=== PATIENT | female | born 1950 | race Asian ===

== ENCOUNTER 2017-08-11 05:34 | Day surgery (SDC) | payer MEDICARE ==
[~2017-08-11] VITALS: Ht 165.1 cm; Wt 72.7 kg
[~2017-08-11 05:34] MED LIST: GLUCOPHAGE1000 MG PO; GLYBURIDE5 M1; LIPOFEN50 MG PO; LOTENSIN5 MG PO; ZOCOR40 MG PO
[2017-08-11 07:02] LABS: HEMATOCRIT 37.3 % (36.0-48.0); HEMOGLOBIN 12.7 g/dL (12-16); MCH 31.2 pg (26.0-34.0); MCV 91.6 fL (80.0-100.0); MEAN PLATELET VOLUME 10.2 fL (7.4-10.4); RBC 4.07 10x6/uL (4.00-5.40); RDW 12.2 % (11.5-14.5); WBC 4.6 10x3/uL (4.8-10.8)
[2017-08-11 07:20] LABS: CALC OSMOLALITY 282 mosm/kg (275-300); CALCIUM 8.7 mg/dL (8.5-10.1); CARBON DIOXIDE 26.5 mmol/L (21.0-32.0); CHLORIDE - SERUM 105 mmol/L (98-107); CREATININE - SERUM 0.7 mg/dL (0.6-1.3); GLUCOSE 173 mg/dL (74-106); POTASSIUM - SERUM 4.3 mmol/L (3.5-5.1); SODIUM 140 mmol/L (136-145); UREA NITROGEN 12 mg/dL (7-18); eGFR NON AFRICAN AMERICAN 89 mL/min (90-120)
[2017-08-11 07:21] VITALS: Ht 165.1 cm; Wt 72.7 kg
--- NOTE | 2017-08-16 11:24 | OP ---
PATIENT NAME: DAVIS CHISHOLM MEDICAL RECORD: [id number] :54 LOCATION:D.OPS ADMISSION DATE: SURGEON: LLOYD MCKINNEY MD DATE OF OPERATION: 08/11/2017 PREOPERATIVE DIAGNOSIS: History of adenomatous colon polyps. POSTOPERATIVE DIAGNOSES: History of adenomatous colon polyps with 3 new colon polyps also seen, ranging from 8 mm to 1.2 cm. PROCEDURES: 1. Total colonoscopy to cecum. 2. Hot biopsy forceps polypectomy times 3. SURGEON: Lloyd Mckinney MD MEDIA PRODUCTION SUPPORT MANAGER: None. BLOOD LOSS: Minimal. ANESTHESIA: IV sedation. COMPLICATIONS: None. The reason for the anesthesia staff being present during the procedure includes anxiety regarding the procedure. ENDOSCOPIC COURSE: The patient was conveyed to the endoscopy suite electively on 08/11/2017. IV sedation was induced by the anesthesia staff. The patient was placed in the Tariq position. A digital rectal examination was performed. A colonoscope was inserted through the anus. It was easily advanced to the cecum. The prep was marginal. I slowly withdrew the endoscope. A combination of direct imaging as well as narrow band imaging were utilized. I dragged the folds. I irrigated and aspirated extensively. The pullback was greater than 15-minute pullback. Three polyps were removed utilizing the hot biopsy forceps polypectomy technique. A retroflexed view was obtained in the rectum. I then unretroflexed the scope and removed it under direct vision. I will see the patient in my office in 2-3 weeks. I will plan for her next surveillance colonoscopy to take place in 3 years. TRANSINT:[id number] Voice Confirmation ID: [id number] DOCUMENT ID: [id number] LLOYD MCKINNEY MD at 1124 CC: FEDERICO SHEFFIELD MD [id number] DICTATION DATE: 08/11/17 1012 MANAGER MASSAGE DEPARTMENT: 08/11/17 1034 [facility] 08/11/17 [id number] [place] [address]
--- NOTE | 2017-08-16 11:24 | HP ---
PATIENT: DAVIS CHISHOLM MEDICAL RECORD: [id number] ACCOUNT: [id number] LOCATION:DANNA : 54 ADMISSION DATE: 08/11/17 HISTORY AND PHYSICAL EXAMINATION CHIEF COMPLAINT: History of colon polyps. HISTORY OF PRESENT ILLNESS: The patient is here for surveillance colonoscopy. Last year in July before colonoscopy, I identified tubular adenoma, which was at the hepatic flexure. The risks, possible complications, and alternatives to procedure were explained to the patient. She elects to proceed. ALLERGIES: No known drug allergies. HOME MEDICATIONS: METFORMIN, GLYBURIDE, FENOFIBRATE, BENAZEPRIL, ZOCOR. SOCIAL HISTORY: Nonsmoker. PAST MEDICAL AND SURGICAL HISTORY: Non-insulin dependent diabetes mellitus, hypertension, history of colon polyps, hyperlipidemia. REVIEW OF SYSTEMS: Negative for CVA or seizures. Negative for thyroid disease or hepatitis. PHYSICAL EXAMINATION: GENERAL: The patient does not appear acutely ill. She does not appear chronically ill. VITAL SIGNS: Reviewed. HEAD: External ears appear normal. EYES: Extraocular movements are intact. NECK: Trachea is midline. CHEST: No intercostal retractions. PULMONARY: Nonlabored. ABDOMEN: Nontender. IMPRESSION: History of colon polyps here for surveillance colonoscopy. PLAN: Will be surveillance colonoscopy. TRANSINT:[id number] Voice Confirmation ID: [id number] DOCUMENT ID: [id number] YAO MCKINNEY MD at 1124 CC: FEDERICO SHEFFIELD MD [id number] DICTATION DATE: 08/11/17 0949 MOLECULAR BIOLOGY DIRECTOR: 08/11/17 1005 [facility] 08/11/17 [id number] [place] [address]
== END 2017-08-11 11:10 | disposition home or self-care (01) ==
LOC: D.OPS 05:34
PROVIDERS: Anesthesiology
DX: Z86.010 Personal history of colon polyps (principal); K63.5 Polyp of colon; I10 Essential (primary) hypertension; E11.9 Type 2 diabetes mellitus without complications; Z01.812 Encounter for preprocedural laboratory examination

== ENCOUNTER 2017-08-12 08:58 | Emergency (ER) | payer MEDICARE ==
[2017-08-11 07:21] VITALS: BMI 26.6
[2017-08-12 09:40] LABS: BASOPHILS 0.2 % (0-2); EOSINOPHILS 1.3 % (0-7); HEMATOCRIT 37.2 % (36.0-48.0); HEMOGLOBIN 12.8 g/dL (12-16); IMMATURE GRANULOCYTES 0.2 % (0-5); LYMPHOCYTES 22.6 % (15-50); MCH 31.2 pg (26.0-34.0); MCHC 34.4 g/dL (31.0-37.0); MCV 90.7 fL (80.0-100.0); MEAN PLATELET VOLUME 10.2 fL (7.4-10.4); MONOCYTES 6.7 % (2-11); PLATELET COUNT 243 10x3/uL (130-400); RDW 12.1 % (11.5-14.5)
[2017-08-12 09:43] LABS: WBC 9.5 10x3/uL (4.8-10.8)
[2017-08-12 11:12] LABS: ALBUMIN 3.4 g/dL (3.4-5.0); ANION GAP 15.1 mmol/L (8-16); BILIRUBIN - TOTAL 0.4 mg/dL (0.2-1.3); CALCIUM 8.6 mg/dL (8.5-10.1); CARBON DIOXIDE 23.6 mmol/L (21.0-32.0); POTASSIUM - SERUM 3.7 mmol/L (3.5-5.1); PROTEIN - SERUM 6.9 g/dL (6.4-8.2)
[2017-08-12 11:15] LABS: CREATININE - SERUM 0.9 mg/dL (0.6-1.3)
[2017-08-12 11:37] LABS: APPEARANCE HAZY (CLEAR); BILIRUBIN NEGATIVE (NEGATIVE); COLOR YELLOW (YELLOW); GLUCOSE 1000 mg/dL (NEGATIVE); KETONE NEGATIVE (NEGATIVE); NITRITE NEGATIVE (NEGATIVE); PROTEIN NEGATIVE (NEGATIVE); UROBILINOGEN NORMAL (NORMAL)
[2017-08-12 11:41] LABS: WHITE CELLS - URINE 0-5 /hpf (0-5)
[2017-08-12 11:42] LABS: BACTERIA FEW /hpf (NONE SEEN); EPITHELIAL CELLS 0-5 /hpf (0-5)
== END 2017-08-12 14:20 | disposition home or self-care (01) ==
LOC: D.ER 08:58
PROVIDERS: Emergency Medicine; Nurse Practitioner Family
DX: N39.0 Urinary tract infection, site not specified (principal); K52.9 Noninfective gastroenteritis and colitis, unspecified; E11.9 Type 2 diabetes mellitus without complications; I10 Essential (primary) hypertension

== ENCOUNTER 2017-08-15 12:46 | Observation (INO) | payer MEDICARE ==
[~2017-08-15] VITALS: Ht 165.1 cm; Wt 72.7 kg
[2017-08-15] MEDS ORDERED: TRADJENTA5 MG PO (16:12)
[2017-08-15] MEDS ORDERED: TYLENOL W/CODEI1 TAB PO (16:13)
[2017-08-15] MEDS ORDERED: ZOFRAN4 MG PO (16:13)
[2017-08-15] MEDS ORDERED: NORVASC5 MG PO (16:14)
[2017-08-15] MEDS ORDERED: ACTOS30 MG PO (16:15)
[2017-08-15] MEDS ORDERED: CIPRO500 MG PO (16:15)
[2017-08-15 16:35] VITALS: BP 167/74
[2017-08-15 16:40] VITALS: BP 167/74; BMI 26.6
--- NOTE | 2017-08-15 19:50 | NUR ---
REPORT RECEIVED, ASSUMED CARE, DENIES NEEDS, CALL LIGHT IN REACH, BE DLOWEST POSIITON, SIDE RAILS UPX2, WILL CONTINUE TO MONITOR
[2017-08-16] VITALS: BP 141/68
--- NOTE | 2017-08-16 00:16 | NUR ---
EYES CLOSED RESPIRATIONS WITH EASE AND UNLABORED.
--- NOTE | 2017-08-16 02:25 | NUR ---
RESTING, DENIES NEEDS, NO DISTRESS NOTED, WILL CONTINUE TO MONITOR
[2017-08-16 04:00] VITALS: BP 147/67
--- NOTE | 2017-08-16 08:30 | NUR ---
RESTING QUIETLY DENIES ANY NEEDS OR DISCOMFORT AT THIS TIME NAD NOTED
[2017-08-16 08:38] LABS: BASOPHILS 0.5 % (0-2); EOSINOPHILS 2.3 % (0-7); HEMATOCRIT 34.5 % (36.0-48.0); IMMATURE GRANULOCYTES 0.2 % (0-5); LYMPHOCYTES 18.5 % (15-50); MCH 31.3 pg (26.0-34.0); MCHC 34.8 g/dL (31.0-37.0); MCV 90.1 fL (80.0-100.0); MEAN PLATELET VOLUME 9.9 fL (7.4-10.4); MONOCYTES 11.5 % (2-11); PLATELET COUNT 233 10x3/uL (130-400); RBC 3.83 10x6/uL (4.00-5.40); RDW 11.7 % (11.5-14.5); WBC 6.2 10x3/uL (4.8-10.8)
[2017-08-16 09:03] LABS: ALBUMIN 2.7 g/dL (3.4-5.0); ANION GAP 11.1 mmol/L (8-16); BILIRUBIN - TOTAL 0.65 mg/dL (0.2-1.3); CALCIUM 8.6 mg/dL (8.5-10.1); CARBON DIOXIDE 28.7 mmol/L (21.0-32.0); POTASSIUM - SERUM 3.8 mmol/L (3.5-5.1); PROTEIN - SERUM 6.4 g/dL (6.4-8.2)
[2017-08-16 09:16] VITALS: BP 151/64
[2017-08-16 10:10] VITALS: Ht 165.1 cm; Wt 72.7 kg
--- NOTE | 2017-08-16 10:14 | NUR ---
PT PRE'OP'D AND SENT TO SURGERY.
--- NOTE | 2017-08-16 11:24 | HP ---
PATIENT: DAVIS CHISHOLM MEDICAL RECORD: [id number] ACCOUNT: [id number] LOCATION:D.MS Noriega5 : 54 ADMISSION DATE: 08/15/17 HISTORY AND PHYSICAL EXAMINATION ADDENDUM CHIEF COMPLAINT: Pain. HISTORY OF PRESENT ILLNESS: The patient recently underwent a colonoscopy by me. She thought she was having pain from the colonoscopy. She had been to the Emergency Room. I have ordered a CT scan on her today. She has got 2.2 cm obstructing stone at the base of the renal pelvis occluding the ureter with hydronephrosis. Dr. Avina is currently out of town. He is going to be returning tomorrow. I have admitted the patient to my service for IV narcotic analgesia. I made the patient n.p.o. in case Dr. Avina can perform a stone manipulation or lithotripsy tomorrow. This is a history and physical note addendum. For the typed portion of the history and physical, please see the chart. This would include the past medical and surgical history, current medications, allergies, social history, as well as family history. REVIEW OF SYSTEMS: Positive for flank pain. Positive for abdominal pain. No nausea, no vomiting, no fever, no chills. Review of systems is negative other than as is described above. PHYSICAL EXAMINATION: GENERAL: The patient does appear acutely ill. Does not appear chronically ill. VITAL SIGNS: Reviewed. The entire physical examination was performed in the presence of a female nurse. EARS: External ears appear normal. EYES: Extraocular movements are intact. NECK: Trachea is midline. CHEST: No intercostal retractions. PULMONARY: Nonlabored, no stridor. ABDOMEN: Left flank tenderness, left lower quadrant tenderness. BACK: Left costovertebral angle tenderness is present. PSYCHIATRIC: Anxious affect. NEUROLOGIC: Nonfocal, no lethargy. IMPRESSION: Symptomatic left ureteral stone 1.2 cm. PLAN: As described above. Consult Dr. Avina in the morning. TRANSINT:[id number] Voice Confirmation ID: [id number] DOCUMENT ID: [id number] HISTORY AND PHYSICAL [id number] DAVIS CHISHOLM YAO MCKINNEY MD at 1124 CC: [id number] DICTATION DATE: 08/15/171999 YOUNG ADULT LIBRARIAN: 08/15/17 2253 ADM IN [facility] [address] [place] [address]
[2017-08-16 11:33] VITALS: BP 143/74
[2017-08-16] MEDS ORDERED: FLOMAX0.4 MG PO (11:37)
--- NOTE | 2017-08-16 11:37 | NUR ---
PT REC'D BACK TO ROOM VIA BED. AAOX4. NO COMPLAINTS OF PAIN. SOME COMPLAINTS OF DIZZINESS. RECONNECTED TO IVF. VSS. EXPLAINED TO PT THAT WE WOULD MONITOR HER VS AND PAIN LEVEL AND THEN SHE WOULD BE SENT HOME. ICE CHIPS PROVIDED. FAMILY AT BEDSIDE. BED LOW, CALL LIGHT IN REACH, DENIES NEEDS. CPOC.
[2017-08-16] MEDS ORDERED: HYDROCODON-ACE1 EAC7 (11:38)
--- NOTE | 2017-08-16 13:04 | NUR ---
PT TOLERATING A REGULAR DIET WELL AND HAS URINATED. DISCONNECTED FROM IVF TO GET DRESSED. TOLD PT TO PRESS CALL LIGHT WHEN SHE IS READY AND WE WILL DISCUSS HER DC INSTRUCTIONS.
--- NOTE | 2017-08-16 13:25 | NUR ---
DC INSTRUCTIONS DISCUSSED AT THIS TIME. QUESTIONS ANSWERED. PIV DC'D WITH CATHETER INTACT. PRESSURE AND DRESSING APPLIED. PAPER PRESCRIPTIONS GIVEN. ESCORTED OUT VIA WC BY VOLUNTEER.
--- NOTE | 2017-08-17 13:12 | OP ---
PATIENT NAME: DAVIS CHISHOLM MEDICAL RECORD: [id number] :54 LOCATION:D.MS [id number] ADMISSION DATE:08/15/17 SURGEON: LLOYD RUANO MD DATE OF OPERATION: 08/16/2017 SURGEON: Lloyd Ruano MD ANESTHESIA: MAC by Jamie Prater CRNA PREOPERATIVE DIAGNOSIS: Left ureteropelvic junction 1.2-cm stone. POSTOPERATIVE DIAGNOSIS: Left ureteropelvic junction 1.2-cm stone. PROCEDURES: Cystoscopy, left retrograde pyelogram, left ureteral stent insertion 6-Mexican x 24 cm with string attached. ESTIMATED BLOOD LOSS: None. CLINICAL HISTORY: This is a 67-year-old female with history of diabetes, hypertension, hypercholesterolemia. She has not previously had a history of kidney stones. For the past 3 weeks, she has complained of episodic left flank pain with nausea and vomiting. Finally, the pain became so intense, she came to the Emergency Room. A CT scan was done of the abdomen and pelvis. It showed nonobstructive gallstones in the gallbladder. It also showed the left renal stone, which is 1.2 cm in size and causing obstruction of the left kidney. She comes now to have a left ureteral stent inserted. She is already on Cipro IV on the floor and we did not give her any further antibiotics. DESCRIPTION OF PROCEDURE: The patient was given IV sedation. She was placed in the dorsal lithotomy position. She was then prepped and draped. Fluoroscopy revealed that the left kidney was still hydronephrotic with the IV contrast from the CT scan being trapped in the left kidney. Since it was difficult to identify the stone, which appears to be at the L3 transverse process level, I performed a retrograde pyelogram. Going into the bladder, she has single ureteral orifices on each side and no bladder tumors were seen. There was some bladder inflammation noted. The left ureteral orifice was intubated with a 5-Mexican open-ended ureteral catheter. Diluted contrast was injected and it confirmed that the stone was indeed in the location that we identified earlier namely at the level of the L3 transverse process. A Sensor wire was then pushed through the lumen into the renal pelvis. In the passage of wire, the kidney stone got pushed back into the kidney. We then removed the open-ended ureteral catheter and over the wire we inserted the stent. Once the stent was in correct position, the wire was removed to allowing the proximal end to coil. The distal end was pushed into the bladder using a pusher. The wire was removed entirely. The string on the distal end of the stent was maintained. It hangs out of the urethra and it was taped to the suprapubic area. The patient will be discharged home today with a script for [place] 5/325 and Flomax. I will arrange for outpatient lithotripsy on the left side in the near future. TRANSINT:[id number] Voice Confirmation ID: [id number] DOCUMENT ID: [id number] OPERATIVE REPORT [id number] DAVIS CHISHOLM, LLOYD Gandhi MD at 1312 CC: [id number] DICTATION DATE: 08/16/17 1116 VICE PRESIDENT OF NURSING: 08/16/17 1439 [facility] IN 08/16/17 [facility] [address] [place] [address]
--- NOTE | 2017-08-17 13:27 | DS ---
PATIENT:DAVIS CHISHOLM :54 MEDICAL RECORD: [id number] DISCHARGE SUMMARY ADMISSION DATE: 08/15/17 DISCHARGE DATE: 08/16/17 PRINCIPAL DIAGNOSIS: A 1.2-cm stone at the ureteropelvic junction on the left causing hydronephrosis. PROCEDURE: Cystoscopy with stent placement. OTHER DIAGNOSES: Include mild atelectasis, small pleural effusion, asymptomatic gallstones, asymptomatic kidney stones. HOSPITAL COURSE: The patient was admitted after CT scan for pain control and antiemetics. The following day, she underwent the above operative procedure by Dr. Ruano. She is being dismissed home on a narcotic analgesic. She is going to see Dr. Ruano for lithotripsy in the future. TRANSINT:[id number] Voice Confirmation ID: [id number] DOCUMENT ID: [id number] YAO MCKINNEY MD at 1327 CC: YAO RUANO MD [id number] DICTATION DATE: 08/16/17 1106 SHOWROOM CONSULTANT: 08/17/17 1003 [facility] 08/16/17 [id number] [place] [address]
== END 2017-08-16 13:27 | disposition home or self-care (01) ==
LOC: D.CT 12:46 → D.MS 15:46 → OBSVTIME 15:47 → D.MS 08-16 13:27
PROVIDERS: ADMIT Surgery
DX: N13.2 Hydronephrosis with renal and ureteral calculous obstruction (principal); K80.20 Calculus of gallbladder without cholecystitis without obstruction; E11.9 Type 2 diabetes mellitus without complications; I10 Essential (primary) hypertension; E78.00 Pure hypercholesterolemia, unspecified; J98.11 Atelectasis; J90 Pleural effusion, not elsewhere classified

== ENCOUNTER 2017-08-31 09:13 | Day surgery (SDC) | payer MEDICARE ==
[~2017-08-31] VITALS: Ht 165.1 cm; Wt 69.5 kg
--- NOTE | ~2017-08-31 | OP ---
PATIENT NAME: DAVIS CHISHOLM MEDICAL RECORD: [id number] :54 LOCATION:JUDI ADMISSION DATE: SURGEON: LLOYD RUANO MD DATE OF OPERATION: 08/31/2017 SURGEON: Lloyd Ruano MD ANESTHESIA: MAC. PREOPERATIVE DIAGNOSIS: Left 1.2 cm renal stone. POSTOPERATIVE DIAGNOSIS: Left 1.2 cm renal stone. PROCEDURE: Left extracorporeal shockwave lithotripsy times 3000 shocks. FINDINGS: Radiodense left 1.2 cm renal pelvis stone. BLOOD LOSS: None. CLINICAL HISTORY: This is a 67-year-old female, who presented with left renal colic due to a large stone in the left kidney obstructing the UP junction. At that time, she had a left ureteral stent inserted. Today, we are going to treat this stone with lithotripsy. She is not allergic to any medications and I gave her 80 mg of gentamicin prior to treatment. DESCRIPTION OF PROCEDURE: The patient was given IV sedation. She was then placed on the treatment table and the stone was targeted in 2 planes using fluoroscopy. Then, 3000 shocks were given to the stone. Initially, the bottom part of the stone was targeted and it was seen to fragment. The rest of the shocks were then given to the top part of the stone. There are stone fragments visible within the renal pelvis. We will see how well she clears the stone with a KUB in 2 weeks. If she still has a significant stone burden, she may require a second treatment with lithotripsy. TRANSINT:[id number] Voice Confirmation ID: [id number] DOCUMENT ID: [id number] LLOYD RUANO MD at 1250 CC: [id number] DICTATION DATE: 08/31/17 1132 ELECTRON BEAM MACHINE WELDER SETTER: 08/31/17 1318 [facility] 08/31/17 [place] [id number]
[~2017-08-31 09:13] MED LIST changes: +ACTOS30 MG PO; +CIPRO500 MG PO; +FLOMAX0.4 MG PO; +HYDROCODON-ACE1 EAC7; +NORVASC5 MG PO; +TRADJENTA5 MG PO; +TYLENOL W/CODEI1 TAB PO; +ZOFRAN4 MG PO
[2017-08-31 10:07] VITALS: BP 126/67; Ht 165.1 cm; Wt 69.5 kg
== END 2017-08-31 12:15 | disposition home or self-care (01) ==
LOC: D.OPS 09:13
DX: N20.0 Calculus of kidney (principal); Z01.812 Encounter for preprocedural laboratory examination

== ENCOUNTER → 2017-09-14 12:41 | Outpatient (CLI) | payer MEDICARE ==
[2017-08-31 10:07] VITALS: BMI 25.5
== END | disposition home or self-care (01) ==
LOC: D.RAD 12:41
DX: N20.0 Calculus of kidney (principal)

== ENCOUNTER → 2017-09-19 11:45 | Outpatient (CLI) | payer MEDICARE ==
[2017-08-31 10:07] VITALS: BMI 25.5
== END | disposition home or self-care (01) ==
LOC: D.LABREF 11:45
PROVIDERS: Internal Medicine
DX: N20.0 Calculus of kidney (principal)

== ENCOUNTER 2021-02-12 13:15 | Outpatient (CLI) | payer MEDICARE ==
[2019-10-09 06:43] VITALS: BMI 26.6
[~2021-02-12 13:15] MED LIST changes: +GLUCOTROL 5 MG T5 MG PO; +LIPITOR10 MG PO; +NORVASC10 MG PO; -NORVASC5 MG PO
== END 2021-02-12 23:59 | disposition home or self-care (01) ==
LOC: D.MAMMO 13:15
PROVIDERS: ATTEND Family Medicine
DX: Z12.31 Encounter for screening mammogram for malignant neoplasm of breast (principal); Z78.0 Asymptomatic menopausal state